=== PATIENT | male | born 1940 | race Hispanic/Latino ===

== ENCOUNTER → 2019-05-03 | Day surgery (SDC) | payer MEDICARE ==
[2019-05-01 14:38] LABS: BASOPHILS % 0.5 % (0.0-1.0); EOSINOPHILS # (AUTO) 0.2 (0.0-0.4); EOSINOPHILS % 3.6 % (0.0-6.0); HEMATOCRIT 42.2 % (38.2-49.6); HEMOGLOBIN 13.9 g/dL (14.0-18.0); LYMPHOCYTES # (AUTO) 1.8 (1.0-3.2); LYMPHOCYTES % 27.7 % (18.0-39.1); MEAN CORPUSCULAR HEMOGLOBIN 29.3 pg (28-32); MEAN CORPUSCULAR HGB CONC 32.9 g/dL (31-35); MONOCYTES # (AUTO) 0.7 (0.2-0.8); MONOCYTES % 10.8 % (4.4-11.3); NEUTROPHILS # (AUTO) 3.7 (2.1-6.9); NEUTROPHILS % 57.1 % (38.7-80.0); PLATELET COUNT 227 x10e3/uL (140-360); RED BLOOD COUNT 4.74 x10e6/uL (4.3-5.7); RED CELL DISTRIBUTION WIDTH 13.1 % (11.7-14.4)
[2019-05-01 14:52] LABS: BLOOD UREA NITROGEN 13 mg/dL (7-26); BUN/CREATININE RATIO 16 (6-25); CALCIUM 9.9 mg/dL (8.4-10.2); CARBON DIOXIDE 26 mmol/L (22-29); CHLORIDE 105 mmol/L (98-107); CREATININE, SERUM 0.81 mg/dL (0.72-1.25); EST GLOMERULAR FILTRATION RATE > 60 ML/MIN (60-); GLUCOSE 96 mg/dL (74-118); SODIUM 139 mmol/L (136-145)
--- NOTE | 2019-05-01 16:15 | Diagnostic Imaging Report ---
Chest, 2 views, 05/01/2019. History: Preop, shoulder surgery. Comparison: None available. Findings: The cardiomediastinal silhouette and pulmonary vasculature are within normal limits. Linear opacities are present at the lung bases. The lungs are otherwise clear without evidence of consolidation or pleural effusion. Degenerative changes are present in the thoracic spine. There are no acute osseous or soft tissue abnormalities. Impression: Bibasilar subsegmental atelectasis. Signed by: Orlando Henderson on 05/01/2019 4:11 PM
[~2019-05-03] MED LIST: ACETAMINOPHEN 1000 MG/100 ML IV ONE; CEFAZOLIN SOD 1 GM/NS 50ML 100 ML IV ONE; DEXAMETHASONE SOD PHOS INJ 4 MG/ML VIAL ONE; EPINEPHRINE 1 MG/ML 30ML VIAL ONE; FENTANYL CITRATE/PF 100MCG/2 ML INJ ONE; GLYCOPYRROLATE INJ 1MG/ 5 ML SYR ONE; HEPARIN SOD/SOD CHLORIDE 1,000 ML ONE; KETOROLAC TROMETHAMINE 30 MG/ML VIAL ONE; LIDOCAINE 2%/ EPINEPHRINE 20ML MDV ONE; LIDOCAINE HCL 2% JELLY 5 ML TUBE ONE; LIDOCAINE HCL 2% LOCAL INJ 5 ML SDV VIAL INJ ONE; LISINOPRIL10 MG PO; LOVASTATIN20 MG PO; METFORMIN HCL500 MG PO; MIDAZOLAM HCL 2 MG/2 ML VIAL ONE; NEOSTIGMINE 5 MG/5ML SYR ONE; NIFEDIPINE ER30 M1 PO; ONDANSETRON HCL INJ 2MG/ML 2ML 2 MG/ML VIAL ONE; PHENYLEPHRINE HCL 1% 10 MG/ML VIAL ONE; PROPOFOL IV EMULSION 10 MG/ML 20 ML VIAL ONE; ROCURONIUM BROMIDE 10 MG/ML 5ML VIAL ONE; ROPIVACAINE 0.5% 5 MG/ML 30 ML SDV ONE; SEVOFLURANE INHAL SOLN 250 ML PEN BTL ONE
--- OUTSIDE RECORDS SUMMARY | 2019-05-03 05:17 | XMS REPORT ---
[facility] Address Unknown Phone Unavailable Care Team Providers Care Sharepoint Manager Name Role Phone ESAU BERMUDEZ Unavailable Unavailable Payers Payer Name Policy Type Policy Number Effective Date Expiration Date Problems This patient has no known problems. Allergies, Adverse Reactions, Alerts Allergy Name Allergy Type Status Severity Reaction(s) Onset Date Inactive Date Treating Clinician Comments No Known Allergies DA Active U 2019-03-24 00:00:00 No Known Allergies DA Active U 2014-07-25 00:00:00 Medications This patient has no known medications. Results Test Description Test Time Test Comments Text Results Atomic Results Result Comments CHEST 2 VIEWS 2019-05-01 16:11:00 [place] [id number] Patient Name: SILVIA FRANCISCO MR #: [id number] : 1940 Age/Sex: 78/M Req #: [id number] Adm Physician: Ordered by: ESAU BERMUDEZ MD Report #: [id number] Location: OR Room/Bed: Procedure: [id number] DX/CHEST 2 VIEWS Exam Date: 05/01/19 Exam Time: 1440 REPORT STATUS: Signed Chest, 2 views, 05/01/2019. History: Preop, shoul steven surgery. Comparison: None available. Findings: The cardiomediastinal silhouette and pulmonary vasculature are within normal limits. Linear opacities are present at the lung bases. The lungs are otherwise clear without evidence of consolidation or pleural effusion. Degenerative changes are present in the thoracic spine. There are no acute osseous or soft tissue abnormalities. Impression: Bibasilar subsegmental atelectasis. Signed by: Orlando Henderson on 05/01/2019 4:11 PM Dictated By: ORLANDO HENDERSON MD 10 Transcribed By: BRITTNY on 05/01/191610 COPY TO: ESAU BERMUDEZ MD - XR SHOULDER 2 + V LT 2019-03-24 13:47:00 FAX: Katia Nitin PersonRamin [phone] [place]: St: REG FAX: MICHAEL HUMPHREYS INFORMATION SERVICES VICE PRESIDENT Name: SILVIA FRANCISCO [facility] : 1940 Age/S: 78/M [address] [facility] Unit #: [id number] Loc: [place] [address] Phys: MICHAEL HUMPHREYS NP Acct: [id number] Dis Date: Status: REG ER PHONE #: [phone] Exam Date: 03/24/2019 1312 FAX #: [phone] Reason: painful reduced ROM EXAMS: CPT CODE: [id number] XR SHOULDER 2 + [place] [address] HISTORY: painful reduced ROM TECHNIQUE: Internal/external rotation AP and scapular Y-views of the left shoulder. FINDINGS: No acute fracture. Glenohumeral and acromioclavicular joints are not dislocated. There are degenerative changes in the ac romioclavicular joint. There is narrowing of the glenohumeral interval suggesting chronic rotator cuff injury. Regional soft tissues are unremarkable. Visualized thorax is within normal limits. IMPRESSION: Degenerative changes in the left shoulder with findings of chronic rotator cuff injury. No acute fracture or dislocation is seen. at 5604 Reported and signed by: Donald Lopez MD CC: Ramin Santana MD; MICHAEL HUMPHREYS NP Technologist: NYDIA VILLARREAL JR Trnscrd Date/Time/By: 03/24/2019 (0548) : By: [email or web address] Orig Print D/T: S: 03/24/2019 (7355) PAGE 1 Signed Report
[2019-05-03 11:52] LABS: ANION GAP 14.7 mmol/L (8-16); BLOOD UREA NITROGEN 15 mg/dL (7-26); BUN/CREATININE RATIO 17 (6-25); CALCIUM 9.7 mg/dL (8.4-10.2); CARBON DIOXIDE 21 mmol/L (22-29); CHLORIDE 104 mmol/L (98-107); EST GLOMERULAR FILTRATION RATE > 60 ML/MIN (60-); GLUCOSE 196 mg/dL (74-118); POTASSIUM 3.7 mmol/L (3.5-5.1); SODIUM 136 mmol/L (136-145)
[2019-05-03 11:54] LABS: MAGNESIUM 1.7 MG/DL (1.3-2.1); PHOSPHORUS 3.7 MG/DL (2.3-4.7)
[2019-05-03 13:30] VITALS: BP 114/72
--- NOTE | 2019-05-03 18:33 | Consultation ---
DATE OF CONSULTATION: Cardiology Consultation CHIEF COMPLAINT: Shoulder pain. HISTORY OF PRESENT ILLNESS: The patient is a 78-year-old, who had arthroscopic surgery on the left shoulder. Postoperatively, the patient developed a Mobitz type 1 second-degree heart block. The patient had no chest pain. No shortness of breath. No syncope. No dizziness. No fevers. No nausea. No vomiting. PAST MEDICAL HISTORY: Significant for: 1. Hypertension. 2. Diabetes mellitus. 3. Hypercholesterolemia. 4. Previous knee arthroscopy. MEDICATIONS: At home include lisinopril, lovastatin, metformin, and nifedipine. SOCIAL HISTORY: The patient does not drink and does not smoke. FAMILY HISTORY: There is no known family history of coronary artery disease. PHYSICAL EXAMINATION: GENERAL: The patient is a well-developed, well-nourished male, in no distress. VITAL SIGNS: Included a temperature of 98.8, blood pressure of 130/80, and pulse was 60. HEAD, EARS, EYES, NOSE, AND THROAT: The patient's cranium was normocephalic and atraumatic. Extraocular muscles were intact. Sclerae were anicteric. Pupils were equal, round, and reactive to light. There is no pallor or cyanosis of the oral mucosa. There is no erythema or edema of the throat. NECK: Supple. No jugular venous distention. No carotid bruits. CHEST: Clear to auscultation and percussion. CARDIAC: Demonstrated normal S1 and S2 with a short 2/6 systolic murmur. ABDOMEN: Demonstrated good bowel sounds. No tenderness and no masses. EXTREMITIES: There is no clubbing, no cyanosis, and no edema. NEUROLOGICAL: The patient was alert and oriented x3. Cranial nerves II through XII were intact. Motor strength was +5/+5 in all limbs. DIAGNOSTIC DATA: The patient's EKG demonstrated Mobitz type 1 second-degree AV block. The previous EKG several days ago demonstrated normal sinus rhythm with a first-degree AV block. IMPRESSION: The patient is a 78-year-old with asymptomatic Mobitz type 1 atrioventricular block. There is no indication for cardiac pacing at this time. The patient is completely asymptomatic and stable for discharge. The patient has been instructed to return to the office for followup in one week. Darrel S Shyam, MD DSH/MODL /[id number] cc: Mahendra Gordon MD
--- NOTE | 2019-05-04 00:54 | Operative Report ---
DATE OF PROCEDURE: 05/03/2019 SURGEON: Jim Blackman MD PREOPERATIVE DIAGNOSES: Left shoulder rotator cuff tear and left shoulder acromioclavicular joint arthritis. 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 OPERATIONS AND PROCEDURES PERFORMED: The patient underwent a left shoulder exam under anesthesia, left shoulder arthroscopy, left shoulder debridement of synovitis, left shoulder chondroplasty of the humeral head and glenoid, left shoulder arthroscopic subacromial decompression without acromioplasty and a left shoulder arthroscopic distal clavicle resection. GLOBAL LOGISTICS MANAGER: Snow Landeros. ANESTHESIA: Regional block plus general endotracheal intubation anesthesia. INTRAVENOUS FLUIDS: Per the anesthesia record. BLOOD LOSS: Minimal. BRIEF DESCRIPTION OF THE PATIENT'S OPERATIVE PROCEDURE: Mr. Charlton was taken to the operating room, placed in supine position on the operating table. Following induction of general anesthesia as well as endotracheal intubation, left shoulder was examined under anesthesia. He was found to have full passive range of motion of the shoulder joint. There was no evidence of instability. The patient's upper extremity was prepped and draped in standard surgical fashion. Standard posterior lateral anterior portals cleared without difficulty. The scope was placed through the shoulder joint atraumatically. Examination of the glenohumeral surfaces demonstrated chondromalacia of both the humeral head and glenoid. The long head of the biceps was found to be torn and not contained within the shoulder. There were no loose bodies in the shoulder joint. The patient had a massive retracted rotator cuff tear. There was diffuse synovitis in the shoulder joint. The shaver was placed in the shoulder joint. The synovitis was debrided. A chondroplasty of the glenoid and humeral head were performed at this time. The shoulder was inflated with sterile normal saline. The scope was then transferred to the subacromial space. A lateral portal was created with an outside in technique. Examination of the subacromial space demonstrated subacromial bursitis. There was a downward sloping acromion. A bursectomy was performed at this time. Examination of the rotator cuff tissue demonstrated attachment of the portion of the infraspinatus only. The rotator cuff was found to be retracted beyond the glenoid rim. The rotator cuff tissue was severely atrophic and macerated. Attempts were made to free the rotator cuff tissue and advance rotator cuff tissue forward to allow for a rotator cuff reconstruction. The tissue was found to be severely deficient and would not move forward to the insertion site of the tuberosity. It was deemed an unfixable tear. A full bursectomy was performed. Acromioplasty was not performed at this time. The coracoacromial ligament was not resected during this case. The anterior portal was then transferred to the subacromial space. Attention was turned to the acromioclavicular joint. There was significant osteophytes at the acromioclavicular joint. The osteophytes were resected. A 1 cm section of the distal clavicle was then resected. The scope was transferred to the anterior portal, confirming the completion of the resection of the distal clavicle. The shoulder was inflated with sterile normal saline. All portal sites were closed. Sterile dressings were applied. The patient was provided with a sling, awakened, and taken to the postanesthesia care unit in stable condition. MD FELX Nix/PARAG /[id number]
== END | disposition home or self-care (01) ==
LOC: OR 05:15
PROVIDERS: ATTEND Specialist
DX: M75.122 Complete rotator cuff tear or rupture of left shoulder, not specified as traumatic (principal); M19.012 Primary osteoarthritis, left shoulder; M65.812 Other synovitis and tenosynovitis, left shoulder; M94.212 Chondromalacia, left shoulder; S46.112A Strain of muscle, fascia and tendon of long head of biceps, left arm, initial encounter; I44.1 Atrioventricular block, second degree; I10 Essential (primary) hypertension; E78.00 Pure hypercholesterolemia, unspecified; E11.9 Type 2 diabetes mellitus without complications; X58.XXXA Exposure to other specified factors, initial encounter; Z01.810 Encounter for preprocedural cardiovascular examination; Z01.812 Encounter for preprocedural laboratory examination; Z01.818 Encounter for other preprocedural examination; Z79.84 Long term (current) use of oral hypoglycemic drugs
CPT/HCPCS: 29822; 29824; 36415 ×2; 71046; 80048 ×2; 82948; 83735; 84100; 85025; 93005 ×2; 93307; J0131; J0690; J1100; J1885; J2001 ×3; J2250; J2370; J2405; J2704; J2795; J3010; J3490

== ENCOUNTER 2021-11-27 11:45 | Emergency (ER) | payer MEDICARE ==
[~2021-11-27] VITALS: Ht 177.8 cm; Wt 83.9 kg
[~2021-11-27 11:45] MED LIST changes: -ACETAMINOPHEN 1000 MG/100 ML IV ONE; -CEFAZOLIN SOD 1 GM/NS 50ML 100 ML IV ONE; -DEXAMETHASONE SOD PHOS INJ 4 MG/ML VIAL ONE; -EPINEPHRINE 1 MG/ML 30ML VIAL ONE; -FENTANYL CITRATE/PF 100MCG/2 ML INJ ONE; -GLYCOPYRROLATE INJ 1MG/ 5 ML SYR ONE; -HEPARIN SOD/SOD CHLORIDE 1,000 ML ONE; -KETOROLAC TROMETHAMINE 30 MG/ML VIAL ONE; -LIDOCAINE 2%/ EPINEPHRINE 20ML MDV ONE; -LIDOCAINE HCL 2% JELLY 5 ML TUBE ONE; -LIDOCAINE HCL 2% LOCAL INJ 5 ML SDV VIAL INJ ONE; -MIDAZOLAM HCL 2 MG/2 ML VIAL ONE; -NEOSTIGMINE 5 MG/5ML SYR ONE; -ONDANSETRON HCL INJ 2MG/ML 2ML 2 MG/ML VIAL ONE; -PHENYLEPHRINE HCL 1% 10 MG/ML VIAL ONE; -PROPOFOL IV EMULSION 10 MG/ML 20 ML VIAL ONE; -ROCURONIUM BROMIDE 10 MG/ML 5ML VIAL ONE; -ROPIVACAINE 0.5% 5 MG/ML 30 ML SDV ONE; -SEVOFLURANE INHAL SOLN 250 ML PEN BTL ONE
[2021-11-27] MEDS ORDERED: CYCLOBENZAPRINE HCL 10 MG TAB PO ONE (12:15)
[2021-11-27] MEDS ORDERED: HYDROCODONE/APAP 5MG-325MG TAB PO ONE (12:15)
[2021-11-27] MEDS ORDERED: LACTULOSE SYRUP 20 GM/30 ML UDC PO ONE (12:15)
[2021-11-27] MEDS ORDERED: CYCLOBENZAPRINE HCL 10 MG TAB ONE (12:25)
[2021-11-27] MEDS ORDERED: HYDROCODONE/APAP 5MG-325MG TAB ONE (12:26)
[2021-11-27] MEDS ORDERED: ANAPROX DS550 MG PO (13:13)
[2021-11-27] MEDS ORDERED: METHOCARBAMOL750 MG PO (13:13)
== END 2021-11-27 13:29 | disposition home or self-care (01) ==
LOC: ER 11:50
DX: M54.50 Low back pain, unspecified (principal); G89.29 Other chronic pain; I10 Essential (primary) hypertension; E11.9 Type 2 diabetes mellitus without complications; E78.5 Hyperlipidemia, unspecified
CPT/HCPCS: 72110; 99283